=== PATIENT | male | born 1990 | race Caucasian/White ===

== ENCOUNTER 2018-02-04 16:54 | Emergency (ER) | payer BC ==
[~2018-02-04] VITALS: Ht 198.1 cm; Wt 154.2 kg
[~2018-02-04 16:54] MED LIST: NEURONTIN 300300 M1 PO; ZOVIRAX800 MG PO
[2018-02-04] MEDS ORDERED: BACTRIM DS TAB1 EACH PO (17:27)
[2018-02-04] MEDS ORDERED: PREDNISONE 20 M20 MG PO (17:27)
[2018-02-04 17:30] VITALS: BP 147/104
== END 2018-02-04 17:38 | disposition home or self-care (01) ==
LOC: M.ERS 16:54
DX: S10.86XA Insect bite of other specified part of neck, initial encounter (principal); Z88.1 Allergy status to other antibiotic agents; W57.XXXA Bitten or stung by nonvenomous insect and other nonvenomous arthropods, initial encounter; Y93.89 Activity, other specified; Y92.89 Other specified places as the place of occurrence of the external cause; Y99.8 Other external cause status